=== PATIENT | male | born 1970 | race Hispanic/Latino ===

== ENCOUNTER 2020-01-22 07:54 | Emergency (ER) | payer BC, OTHER ==
[2020-01-26 14:40] LABS: SARS-CoV-2 MS2 Positive; SARS-CoV-2 N Gene Positive; SARS-CoV-2 S Gene Positive; SARS-CoV-2 orf1ab Positive
== END 2020-01-22 08:30 | disposition home or self-care (01) ==
LOC: NAV ERS 07:54
DX: U07.1 COVID-19 (principal)
CPT/HCPCS: 87635; 99283; U0003

== ENCOUNTER 2022-12-11 11:33 | Outpatient (CLI) | payer OTHER | END 2022-12-11 11:34 | disposition home or self-care (01) | LOC: NAV RAD 11:33 | PROVIDERS: ATTEND Nurse Practitioner Family | DX: R10.9 Unspecified abdominal pain (principal) | CPT/HCPCS: 74018 ==